=== PATIENT | male | born 1980 | race Caucasian/White ===

== ENCOUNTER 2017-02-17 15:06 | Emergency (ER) | payer OTHER ==
[2017-02-17 15:26] VITALS: BP 114/76
--- NOTE | 2017-02-17 15:59 | UC ---
Shoulder Pain HPI - HPI Summary HPI Summary: PT HAS HAD CHRONIC RIGHT SHOULDER PAIN FOR OVER 2 YEARS. DOES NOT RECALL ANY SPECIFIC INJURY. HAS NEVER HAD THIS EVALUATED. WENT TO PCP SEVERAL MONTHS AGO AND GOR AN ORDER FOR AN XRAY BUT COULD NEVER GET A RIDE HERE SO THE ORDER . PT FEELS LIKE THE PAIN IS GETTING WORSE. IS HERE TODAY BECAUSE HE WAS FINALLY ABLE TO GET A RIDE AND HE WOULD LIKE THE XRAY DONE. - History of Current Complaint Chief Complaint: UCUpperExtremity Stated Complaint: SOULDER INJURY, AND ELBOW PAIN Time Seen by Provider: 02/17/17 15:32 Hx Obtained From: Patient Onset/Duration: Gradual Onset, Still Present Timing: Constant Severity Initially: Moderate Severity Currently: Moderate Pain Intensity: 8 Pain Scale Used: 0-10 Numeric Character: Sharp, Aching Aggravating Factor(s): Movement Alleviating Factor(s): Rest Associated Signs And Symptoms: Positive: Negative Related History: Dominant Hand Right - Allergies/Home Medications Allergies/Adverse Reactions: Allergies Allergy/AdvReac Type Severity Reaction Status Date / Time Ciprofloxacin Allergy Unknown Unknown Verified 02/17/17 15:26 Reaction Details PMH/Surg Hx/FS Hx/Imm Hx - Additional Past Medical History Additional PMH: ARTHRITIS, NERVE DAMAGE RLE Other History Of: Negative For: Anticoagulant Therapy - Surgical History Surgical History: Yes Surgery Procedure, Year, and Place: LEG SURGERY - Family History Known Family History: Positive: Hypertension, Other - CANCER, ARTHRITIS - Social History Alcohol Use: Occasionally Substance Use Type: Marijuana Smoking Status (MU): Current Every Day Smoker Type: Cigarettes Amount Used/How Often: 1/2 PPD (NON-FILTERED) Household Exposure Type: Cigarettes - Immunization History Most Recent Influenza Vaccination: unknown Most Recent Tetanus Shot: unknown Most Recent Pneumonia Vaccination: never Review of Systems Constitutional: Negative Skin: Negative Respiratory: Negative Cardiovascular: Negative Gastrointestinal: Negative Musculoskeletal: Arthralgia All Other Systems Reviewed And Are Negative: Yes Physical Exam Triage Information Reviewed: Yes Appearance: Well-Appearing, No Pain Distress, Well-Nourished Vital Signs: Initial Vital Signs Temp 97.8 F 02/17/17 15:21 Pulse 90 02/17/17 15:21 Resp 16 02/17/17 15:21 BP 114/76 02/17/17 15:21 Pulse Ox 98 02/17/17 15:21 Vital Signs Reviewed: Yes Eyes: Positive: Conjunctiva Clear ENT: Positive: Hearing grossly normal Neck: Positive: Supple Respiratory: Positive: No respiratory distress, No accessory muscle use Cardiovascular: Positive: Pulses Normal Abdomen Description: Positive: Soft Musculoskeletal: Positive: ROM Intact, No Edema, Other: - TTP DIFFUSELY OVER LEFT SHOULDER. SPECIAL TESTING EQUIVOCAL Neurological: Positive: Alert Psychological: Positive: Age Appropriate Behavior Skin: Negative: rashes Diagnostics - Radiology RIGHT SHOULDER XRAY Xray Interpretation: Positive (See Comments) - MILD OSTEOARTHRITIC CHANGE IN THE ACROMIOCLAVICULAR JOINT. Radiology Interpretation Completed By: Radiologist Shoulder Course/Dx - Differential Dx/Diagnosis Provider Diagnoses: RIGHT SHOULDER PAIN Discharge - Discharge Plan Condition: Stable Disposition: HOME Prescriptions: Naproxen [Naproxen EC] 500 mg PO BID PRN #30 tab PRN Reason: Pain Patient Education Materials: Shoulder Pain (ED) Referrals: Yonis Whitfield MD [Medical Doctor] - 2 Days Vandana Simpson MD [Medical Doctor] - 1 Week Additional Instructions: XRAY TODAY SHOWED MILD OSTEOARTHRITIC CHANGE IN THE ACROMIOCLAVICULAR JOINT. THIS WILL NOT ACCOUNT FOR YOUR LEVEL OF PAIN. WEAR THE SLING NEEDED FOR COMFORT. NSAIDS FOR DISCOMFORT. CALL [facility] SUNDAY MORNING TO SCHEDULE A FOLLOW-UP APPT.
--- NOTE | 2017-02-17 16:16 | RAD ---
INDICATION: Right shoulder pain. TECHNIQUE: 4 views of the right shoulder were obtained. FINDINGS: The bones are in normal alignment. No fracture is seen. There is mild osteoarthritic change in the acromioclavicular joint. IMPRESSION: MILD OSTEOARTHRITIC CHANGE IN THE ACROMIOCLAVICULAR JOINT.
== END 2017-02-17 16:30 | disposition home or self-care (01) ==
LOC: UCEAST 15:06
DX: M25.511 Pain in right shoulder (principal); Z88.1 Allergy status to other antibiotic agents; F17.210 Nicotine dependence, cigarettes, uncomplicated
CPT/HCPCS: 99213; G0463